=== PATIENT | female | born 1970 | race Caucasian/White ===

== ENCOUNTER 2020-10-22 04:46 | Inpatient (IN) | payer MEDICARE, MEDICAID ==
[~2020-10-22] VITALS: Ht 175.3 cm; Wt 77.2 kg
[2020-10-22 04:55] VITALS: BP 171/93
[2020-10-22] MEDS ORDERED: SERT100T PO (05:21)
[2020-10-22] MEDS ORDERED: AMLO-186 PO (05:21)
[2020-10-22] MEDS ORDERED: ALPR0.5T6 PO (05:21)
[2020-10-22] MEDS ORDERED: ZOLP10TA PO (05:21)
[2020-10-22] MEDS ORDERED: LAMO150T4 PO (05:21)
[2020-10-22] MEDS ORDERED: LOSA100T14 PO (05:21)
[2020-10-22] MEDS ORDERED: ACETAMINOPHEN 325 MG TABLET. PO PRN ×2 (05:45→12:30)
[2020-10-22] MEDS ORDERED: ONDANSETRON PF 4 MG/2 ML VIAL. IVP PRN (05:45)
[2020-10-22] MEDS: IV NORMAL SALINE 1000ML BAG 1,000 ML IV SCH ×2 (05:56→21:18)
[2020-10-22 06:00] VITALS: BP 170/89
--- NOTE | 2020-10-22 06:01 | NUR ---
The patient, HAN MYLES, 50 y/o, F admitted by PRADIP STEPHENS MD, was given written information regarding hospital policies, unit procedures and contact persons. Valuables were checked and all questions answered. Blood started at [facility] at 0327 done at 0535 with no reactions seen. VSS. Dr. Stephens notified of admit and orders given. Pt. resting comfortably in bed.
--- NOTE | 2020-10-22 06:35 | NUR ---
Unable to draw from port. Pt. states it is very positional and often has troubles drawing labs. Lab notified of need to draw.
[2020-10-22] MEDS: MORPHINE SULFATE 2 MG/ML VIAL. IV PRN ×2 (08:08→10:29)
[2020-10-22] MEDS ORDERED: PANTOPRAZOLE IV PUSH 40 MG VIAL. IVP SCH (09:00)
[2020-10-22] MEDS ORDERED: FLU VACC QS 2020-21(6MOS+)/PF 0.5 ML SYRINGE. VAX IM ONE (09:00)
[2020-10-22] MEDS ORDERED: IV RINGERS,LACTATED 1000ML 1,000 ML IV ONE (09:30)
--- NOTE | 2020-10-22 09:59 | PDOC2 ---
GI CONSULT Date of Service: DATE: 10/22/20 TIME: 09:59 Reason For Consult: GI bleed HPI: HPI: 50 y/o female sent from [facility]. Chronic n/v, abdominal pain, and alternating bowel habits. H/o J Carlos-en-Y at [facility] in 2003. Problems w/ "ulcers and strictures" since then. Indicates has seen many gastroenterologists and surgeons but the only name she can recall right now is Dr. White at who performed her last surgery in 2013 ("took out the part that was bleeding"). Thinks she last had EGD and colonoscopy at that time at and also had many scoped before that. Daily vomiting - often undigested food hours after eating. "It's like swallowing a bag of rocks" - "sits" in epigastric area. Sometimes has diarrhea, sometimes has constipation. This time, reports "dark" emesis and diarrhea "with red blood in it." Doesn't always have bleeding, but sometimes. Now sicker than usual, more pain than usual, says "I waited too long to come in." Stopped PPI years ago due to cost. Takes Mylanta instead, also Carafate. I asked who prescribed Carafate and she couldn't remember. Stopped iron and B12 too because she doesn't have health insurance. Has lost weight. No NSAIDs. S/p cholecystectomy. No liver or pancreas history. At [facility]: Hgb 6.8, MCV 83, plt 501, BUN 12, Cr 0.6, +Hemoccult. Says was transfused 1 unit pRBCs. Labs pending this morning. PMH: PMH: HTN appendectomy, cholecystectomy, J Carlos-en-Y and revision, , right hip replacement, bilateral shoulder surgeries (many) FH: Family History: No pertinent hx (denies GI cancers) Social History: Smoke: Quit ALCOHOL: none Drugs: None ROS: GEN: Denies fevers, chills, sweats HEENT: Denies blurred vision, sore throat CV: Denies chest pain RESP: Denies shortness of air, cough GI: Per HPI : Denies hematuria, dysuria ENDO: +weight loss NEURO: Denies confusion, dizziness MSK: Denies weakness, joint pain/swelling SKIN: Denies jaundice, pruritus Vitals: Vitals: Vital Signs Date Time Temp Pulse Resp B/P (MAP) Pulse Ox O2 Delivery O2 Flow Rate FiO2 10/22/20 08:08 19 93 Room Air 10/22/20 06:00 98.2 68 170/89 (116) 98.2 Allergies: Coded Allergies: ibuprofen (Verified Allergy, Severe, Swelling, 10/22/20) facial swelling lisinopril (Verified Allergy, Severe, Swelling, 10/22/20) facial swelling Medications: Current Medications Medications (Trade) Dose Ordered Sig/Jai Route PRN Reason Start Time Stop Time Status Last Admin Dose Admin Morphine Sulfate (Morphine Sulfate) 2 mg PRN Q2HR PRN IV PAIN 10/22/20 05:45 10/22/20 08:08 Ondansetron HCl (Zofran) 4 mg PRN Q6HRS PRN IVP NAUSEA/VOMITING 10/22/20 05:45 10/22/20 08:07 Pantoprazole Sodium (PROTONIX VIAL for IV PUSH) 40 mg BID IVP 10/22/20 09:00 10/22/20 08:07 Sodium Chloride 1,000 ml @ 100 mls/hr Q10H IV 10/22/20 05:45 10/22/20 05:56 Imaging: Imaging: none PE: GEN: uncomfortable HEENT: Atraumatic, PERRL LUNGS: CTAB HEART: RRR ABD: quiet, epigastric tenderness, soft EXTREMITY: No edema SKIN: No rashes, no jaundice NEURO/PSYCH: A & O 3, anxious A/P: A/P: N/v (?coffee-ground emesis), abd pain, diarrhea/hematochezia Anemia H/o J Carlos-en-Y and revision, h/o ulcers and strictures HTN - per primary Non-compliance -- Agree w/ IV PPI. Labs pending. Plan for EGD this morning pending COVID testing - d/w nurse Katy at 9:00 a.mKEZIA ELDER Oct 22, 2020 09:59
[2020-10-22] MEDS ORDERED: IV RINGERS,LACTATED 1000ML 1,000 ML IV SCH (10:30)
[2020-10-22] MEDS ORDERED: PROPOFOL 10 MG/ML (20ML) VIAL. IV ONE (10:43)
[2020-10-22] MEDS ORDERED: LIDOCAINE 2% PF 5 ML VIAL. ONE (10:44)
--- NOTE | 2020-10-22 11:04 | PDOC4 ---
PROCEDURE Procedure EGD Indication: anemia, hematemesis Meds: per anesthesia Findings: E--Normal. GEJ at 35 cm. G--S/p J Carlos-en-Y with small pouch unremarkable. Gastroenterostomy mildly narrowed; able to pass with 'scope and dilated some with passage. J Carlos limb--Chronic clean-based ulcer ~1 cm just distal to stoma w/o bleeding or signs of recent bleeding. Rest of limb unremarkable. Ryan. well. IMP: Anastomotic ulcer, chronic, but w/o signs of recent or risk of future b leeding. S/p J Carlos-en-Y bypass. Mild stomal stenosis, dilated with 'scope passage. REC: BID PPI po. QID sucralfate po. Try liquids--advance cautiously if tolerated. Long-term needs chronic iron supplementation, po or IV. ABRAHAM VELIZ MD Oct 22, 2020 11:04
--- NOTE | 2020-10-22 11:23 | PDOC1 ---
History and Physical Date of Service: DOS: DATE: 10/22/20 TIME: 11:03 Chief Complaint: Chief Complain: Hematemesis History of Present Illness: HPI: Patient is a 50-year-old female with past medical history of weight loss J Carlos-en-Y done in 2004 and multiple episodes of GI bleed since then. She has not last EGD was done in 2018 which was normal. She also had a surgical procedure in 2013 for a nonhealing ulcer in which the gastrojejunal anastomosis was revised she comes in due to daily vomiting of undigested food after eating. She has a has some dysphagia and some diarrhea. Patient also reports dark blood hematemesis and bright red blood with stools. Patient has not been taking PPI for years mainly due to cost. She does take Mylanta and Carafate. Patient also does stop taking iron and B12 because she does not have health insurance. Denies any recent weight loss or NSAID use. At [facility]: Hgb 6.8, MCV 83, plt 501, BUN 12, Cr 0.6, +Hemoccult. Says was transfused 1 unit pRBCs. Labs pending this morning. Past Medical/Surgical History: PMH/PSH: PMH:HTN PSURHx: appendectomy, cholecystectomy, J Carlos-en-Y and revision, , right hip replacement, bilateral shoulder surgeries (many) FH: Family History: No pertinent hx (denies GI cancers) Social History: Smoke: Quit ALCOHOL: none Drugs: None Allergies: Allergies: Coded Allergies: ibuprofen (Verified Allergy, Severe, Swelling, 10/22/20) facial swelling lisinopril (Verified Allergy, Severe, Swelling, 10/22/20) facial swelling Family History: Family History: No pertinent hx (denies GI cancers) Social History: Social History: Social History: Smoke: Quit ALCOHOL: none Drugs: None Current Medications: Current Medications Current Medications Morphine Sulfate (Morphine Sulfate) 2 mg PRN Q2HR PRN IV PAIN Last administered on 10/22/20at 10:29; Start 10/22/20 at 05:45 Ondansetron HCl (Zofran) 4 mg PRN Q6HRS PRN IVP NAUSEA/VOMITING Last admini stered on 10/22/20at 08:07; Start 10/22/20 at 05:45 Acetaminophen (Tylenol) 650 mg PRN Q6HRS PRN PO MILD PAIN / TEMP > 100.3'F; Start 10/22/20 at 05:45 Pantoprazole Sodium (PROTONIX VIAL for IV PUSH) 40 mg BID IVP Last administered on 10/22/20at 08:07; Start 10/22/20 at 09:00 Sodium Chloride 1,000 ml @ 100 mls/hr Q10H IV Last administered on 10/22/20at 05:56; Start 10/22/20 at 05:45 Influenza Virus Vaccine Quadrival (Fluzone Quad Syringe) 0.5 ml ONCE ONCE VAX IM ; Start 10/22/20 at 09:00; Stop 10/22/20 at 09:01; Status DC Ringer's Solution 1,000 ml @ 75 mls/hr 1X ONCE IV Last administered on 10/22/20at 10:24; Start 10/22/20 at 09:30; Stop 10/22/20 at 22:49 Ringer's Solution 1,000 ml @ 50 mls/hr Q20H IV ; Start 10/22/20 at 10:30; Stop 10/22/20 at 22:29 Propofol (Diprivan) 200 mg STK-MED ONCE IV ; Start 10/22/20 at 10:43; Stop 10/22/20 at 10:44; Status DC Lidocaine HCl (Lidocaine Pf 2% Vial) 5 ml STK-MED ONCE .ROUTE ; Start 10/22/20 at 10:44; Stop 10/22/20 at 10:44; Status DC Active Scripts Active Reported Amlodipine Besylate 5 Mg Tablet 5 Mg PO DAILYWSUP Ambien (Zolpidem Tartrate) 10 Mg Tablet 10 Mg PO HS PRN Alprazolam 0.5 Mg Tablet 1 Tab PO HS Lamotrigine 150 Mg Tablet 1 Tab PO DAILY Zoloft (Sertraline Hcl) 100 Mg Tablet 1 Tab PO DAILY Losartan Potassium 100 Mg Tablet 100 Mg PO DAILY ROS: Review of Systems Review of System REVIEW OF SYSTEMS: GENERAL: Denies weakness SKIN: No bruising, hair changes or rashes. EYES: No blurred, double or loss of vision. NOSE AND THROAT: No history of nosebleeds, hoarseness or sore throat. HEART: No history of palpitations, chest pain or shortness of breath on exertion. LUNGS: Denies cough, hemoptysis, wheezing or shortness of breath. GASTROINTESTINAL: Denies changes in appetite, nausea, vomiting, diarrhea or constipation. GENITOURINARY: No history of frequency, urgency, hesitancy or nocturia. NEUROLOGIC: Denies history of numbness, tingling, or tremor. PSYCHIATRIC: No history of panic, anxiety or depression. ENDOCRINE: No history of heat or cold intolerance, polyuria or polydipsia. EXTREMITIES: Denies joint pain, pain on walking or stiffness. Physical Exam: Vital Signs: Vital Signs Date Time Temp Pulse Resp B/P (MAP) Pulse Ox O2 Delivery O2 Flow Rate FiO2 10/22/20 10:58 98.8 72 18 126/58 99 Room Air 2 98.8 Physcial Exam: GEN: No apparent distress. Alert and oriented HEENT: Normal cephalic, atraumatic, external auditory canals are patent EYES: Extraocular muscles are intact, pupil are equally round and reactive to light and accommodation MUSCULOSKELETAL: Well developed , well nourished, good range of motion ENDOCRINE: No thyromegaly was palpated LYMPHATICS: No cervical chain or axillary nodes were noted HEMATOPOIETIC: No bruising NECK: Supple, no JVD, no thyromegaly was noted LUNGS: Clear to auscultation in all lung carbajal without rhonchi or wheezing HEART: RRR, S!, S2 present. Peripheral pulses intact, no obvious murmurs noted ABDOMEN: Soft, nontender. Positive bowel sounds, no organomegaly, normal bowel sounds EXTREMITIES: Without clubbing, cyanosis, or edema. Pedal pulses intact. Negative Homans sign NEUROLOGIC: Normal speech and tone. A&O x 3, moves all extremities, no obvious focal deficits PSYCHIATRIC: Normal affect, normal mood. Stable SKIN: No ulcerations or rashes, good skin turgor, no jaundice VASCULAR: Good capillary refill, neurovascular bundle appears to be intact Labs: Labs: Laboratory Tests Test 10/22/20 09:30 SARS-CoV-2 Antigen (Rapid) Negative (NEGATIVE) Laboratory Tests Test 10/22/20 09:30 SARS-CoV-2 Antigen (Rapid) Negative (NEGATIVE) Images: Images No pending images to review Assessment/Plan Assessment/Plan hematemesis due to acute GI bleed upper versus lower Profound anemia status post one PRBC transfusion History of recurrent gastric ulcers Medical nonadherence Admit to medicine for further management Gastroenterology consult for EGD upper versus lower PPI infusion N.p.o. status We will transfuse IV thiamine and B12 subcu injections Pending TSH, B12, iron, copper, thiamine levels Contraindicated due to GI bleed for DVT prophylaxis Protonix twice daily GI prophylaxis ADA diet Full code Discussed with RN and SW Disposition pending EGD Surrogate decision maker is the [] Justifications for Admission Other Justification PRADIP SHAW MD Oct 22, 2020 11:23
[2020-10-22 11:24] LABS: BASO % 0 % (0-3); EOS # 0.1 x10^3/uL (0.0-0.7); EOS % 1 % (0-3); HEMATOCRIT 27.1 % (36.0-47.0); HEMOGLOBIN 8.7 g/dL (12.0-15.5); LYMPH # 1.9 x10^3/uL (1.0-4.8); LYMPH % 18 % (24-48); MEAN CORPUSCULAR HEMOGLOBIN 27 pg (25-35); MEAN CORPUSCULAR HGB CONC 32 g/dL (31-37); MEAN CORPUSCULAR VOLUME 83 fL (79-100); MONO # 0.3 x10^3/uL (0.0-1.1); MONO % 3 % (0-9); NEUT % 78 % (31-73); PLATELET COUNT 449 x10^3/uL (140-400); RED BLOOD COUNT 3.28 x10^6/uL (3.50-5.40); RED CELL DISTRIBUTION WIDTH 15.9 % (11.5-14.5); WHITE BLOOD COUNT 10.3 x10^3/uL (4.0-11.0)
[2020-10-22 11:31] LABS: PROTHROMBIN TIME PATIENT 12.8 SEC (11.7-14.0)
[2020-10-22 11:42] LABS: TOTAL PROTEIN 5.9 g/dL (6.4-8.2)
[2020-10-22 11:43] LABS: ALK PHOS 190 U/L (46-116); ALT (SGPT) 38 U/L (14-59); ANION GAP 10 (6-14); AST (SGOT) 67 U/L (15-37); BLOOD UREA NITROGEN 7 mg/dL (7-20); BUN/CREATININE RATIO 35 (6-20); CALCIUM 8.1 mg/dL (8.5-10.1); CARBON DIOXIDE 24 mmol/L (21-32); CHLORIDE 106 mmol/L (98-107); CREATININE 0.2 mg/dL (0.6-1.0); GFR > 300.0; GLUCOSE 108 mg/dL (70-99); POTASSIUM 3.4 mmol/L (3.5-5.1); SODIUM 140 mmol/L (136-145); TOTAL BILIRUBIN 0.3 mg/dL (0.2-1.0)
[2020-10-22] MEDS ORDERED: SENNOSIDES 8.6 MG TABLET PO PRN (12:30)
[2020-10-22] MEDS ORDERED: DOCUSATE SODIUM 100 MG CAPSULE. PO PRN (12:30)
[2020-10-22] MEDS ORDERED: DEXTROSE 50% 25 GM / 50ML DISP.SYRIN. IV PRN (12:30)
[2020-10-22] MEDS ORDERED: CYANOCOBALAMIN (VITAMIN B-12) 1,000 MCG/ML VIAL. SQ ONE (13:00)
--- NOTE | 2020-10-22 13:48 | NUR ---
SW following for discharge planning. Spoke with RN and reviewed chart. Pt transferred from [place] per GI bleed. Pt from home. COVID negative, room air, clear liquid diet. PT/OT to evaluate. SW following.
[2020-10-22] MEDS: SUCRALFATE 1 GM TABLET. PO SCH ×3 (14:01→21:18)
[2020-10-22] MEDS: ONDANSETRON PF 4 MG/2 ML VIAL. IVP PRN (14:01)
[2020-10-22] MEDS: THIAMINE 100 MG TABLET. PO SCH (14:01)
[2020-10-22] MEDS: MORPHINE SULFATE 2 MG/ML VIAL. IVP PRN ×3 (14:02→23:53)
[2020-10-22 15:00] VITALS: BP 103/60
[2020-10-22] MEDS: PANTOPRAZOLE 40 MG TABLET.DR. PO SCH (16:30)
[2020-10-22 19:00] VITALS: BP 175/93
[2020-10-22 23:00] VITALS: BP 171/93
[2020-10-23] MEDS: IV NORMAL SALINE 1000ML BAG 1,000 ML IV SCH ×3 (01:45→21:03)
[2020-10-23] MEDS: MORPHINE SULFATE 2 MG/ML VIAL. IVP PRN ×6 (02:55→23:15)
[2020-10-23 03:00] VITALS: BP 129/90
[2020-10-23 07:00] VITALS: BP 154/86
[2020-10-23] MEDS: ONDANSETRON PF 4 MG/2 ML VIAL. IVP PRN ×2 (07:00→17:37)
[2020-10-23] MEDS: SUCRALFATE 1 GM TABLET. PO SCH ×4 (08:12→23:17)
[2020-10-23] MEDS: PANTOPRAZOLE 40 MG TABLET.DR. PO SCH ×2 (08:12→17:37)
[2020-10-23] MEDS: THIAMINE 100 MG TABLET. PO SCH (08:12)
[2020-10-23] MEDS ORDERED: THIAMINE INJ 100 MG in IV DEXTROSE 5% 50 ML IV SCH (09:00)
[2020-10-23] MEDS: CYANOCOBALAMIN (VITAMIN B-12) 1,000 MCG/ML VIAL. SQ SCH (09:20)
[2020-10-23] MEDS ORDERED: POLYETHYLENE GLYCOL 3350 17 GM PACKET. PO PRN (10:30)
--- NOTE | 2020-10-23 10:31 | PDOC ---
Date of Service: DATE: 10/23/20 TIME: 10:26 Subjective: Subjective: "I just don't feel right." No bleeding, no stools, no vomiting. Tolerating clears, not sure she wants more to eat but maybe. Nothing sounds good. Pain the same. Objective: Vital Signs: Vital Signs Date Time Temp Pulse Resp B/P (MAP) Pulse Ox O2 Delivery O2 Flow Rate FiO2 10/23/20 09:54 Room Air 10/23/20 07:00 98 10/23/20 07:00 98.5 72 16 154/86 (108) 98.5 10/22/20 10:58 2 Imaging: EGD 10/22 E--Normal. GEJ at 35 cm. G--S/p J Carlos-en-Y with small pouch unremarkable. Gastroenterostomy mildly narrowed; able to pass with 'scope and dilated some with passage. J Carlos limb--Chronic clean-based ulcer ~1 cm just distal to stoma w/o bleeding or signs of recent bleeding. Rest of limb unremarkable. IMP: Anastomotic ulcer, chronic, but w/o signs of recent or risk of future bleeding. S/p J Carlos-en-Y bypass. Mild stomal stenosis, dilated with 'scope passage. REC: BID PPI po. QID sucralfate po. Try liquids--advance cautiously if tolerated. Long-term needs chronic iron supplementation, po or IV. PE: GEN: NAD LUNGS: CTAB HEART: RRR ABD: epigastric discomfort - better NEURO/PSYCH: A & O 3, anxious A/P: S/p J Carlos-en-Y w/ chronic anastomotic ulcer and mild stomal stenosis Upper abd pain Anemia - improved after transfusions 10/22 -- Continue PPI and Carafate. Can try full liquids. Add iron, continue B12. Await interval labs. Justicifation of Admission Dx: Justifications for Admission: Justification of Admission Dx: Yes KEZIA HUTCHINSON Oct 23, 2020 10:31
[2020-10-23 10:47] LABS: BASO % 0 % (0-3); EOS # 0.1 x10^3/uL (0.0-0.7); EOS % 1 % (0-3); HEMATOCRIT 25.1 % (36.0-47.0); HEMOGLOBIN 7.9 g/dL (12.0-15.5); LYMPH # 1.1 x10^3/uL (1.0-4.8); LYMPH % 15 % (24-48); MEAN CORPUSCULAR HEMOGLOBIN 26 pg (25-35); MEAN CORPUSCULAR HGB CONC 32 g/dL (31-37); MEAN CORPUSCULAR VOLUME 82 fL (79-100); MONO # 0.4 x10^3/uL (0.0-1.1); MONO % 5 % (0-9); NEUT # 6.1 x10^3/uL (1.8-7.7); NEUT % 79 % (31-73); PLATELET COUNT 396 x10^3/uL (140-400); RED BLOOD COUNT 3.05 x10^6/uL (3.50-5.40); WHITE BLOOD COUNT 7.7 x10^3/uL (4.0-11.0)
[2020-10-23 11:00] VITALS: BP 175/80
[2020-10-23 11:09] LABS: CREATININE 0.3 mg/dL (0.6-1.0); GFR 233.6; MAGNESIUM 1.7 mg/dL (1.8-2.4); PHOSPHORUS 2.8 mg/dL (2.6-4.7); POTASSIUM 3.1 mmol/L (3.5-5.1)
--- NOTE | 2020-10-23 14:45 | PDOC ---
[employer] PROGRESS NOTE Date of Service DOS: DATE: 10/23/20 TIME: 14:42 Chief Complaint Chief Complaint hematemesis due to acute GI bleed upper versus lower Profound anemia status post one PRBC transfusion History of recurrent gastric ulcers Medical nonadherence Admit to medicine for further management Gastroenterology consult for EGD upper versus lower PPI infusion N.p.o. status We will transfuse IV thiamine and B12 subcut injections Pending TSH, B12, iron, copper, thiamine levels Contraindicated due to GI bleed for DVT prophylaxis Protonix twice daily GI prophylaxis ADA diet Full code Discussed with RN and SW Disposition pending EGD Surrogate decision maker is the [] History of Present Illness History of Present Illness 10/23/2020 No acute events overnight. Patient is not having any more hematemesis or hemoptysis. EGD completed which showed chronic healing ulcer near the anastomosis. No bloody stools. Pending diet full liquid today. Patient's chart, labs, images were reviewed and discussed with RN 50-year-old female with past medical history of weight loss J Carlos-en-Y done in 2004 and multiple episodes of GI bleed since then. She has not last EGD was done in 2018 which was normal. She also had a surgical procedure in 2013 for a nonhealing ulcer in which the gastrojejunal anastomosis was revised she comes in due to daily vomiting of undigested food after eating. She has a has some dysphagia and some diarrhea. Patient also reports dark blood hematemesis and bright red blood with stools. Patient has not been taking PPI for years mainly due to cost. She does take Mylanta and Carafate. Patient also does stop taking iron and B12 because she does not have health insurance. Denies any recent weight loss or NSAID use. At [facility]: Hgb 6.8, MCV 83, plt 501, BUN 12, Cr 0.6, +Hemoccult. Says was transfused 1 unit pRBCs. Labs pending this morning. Vitals/I&O Vitals/I&O: Vital Signs Date Time Temp Pulse Resp B/P (MAP) Pulse Ox O2 Delivery O2 Flow Rate FiO2 10/23/20 12:50 Room Air 10/23/20 11:00 98.5 62 16 175/80 (111) 98 98.5 10/22/20 10:58 2 I & O 10/22/20 10/22/2020 15:00 23:00 07:00 Intake Total 320 ml Balance 320 ml Labs Labs: Laboratory Tests Test 10/23/20 10:15 White Blood Count 7.7 x10^3/uL (4.0-11.0) Red Blood Count 3.05 x10^6/uL (3.50-5.40) Hemoglobin 7.9 g/dL (12.0-15.5) Hematocrit 25.1 % (36.0-47.0) Mean Corpuscular Volume 82 fL (79-100) Mean Corpuscular Hemoglobin 26 pg (25-35) Mean Corpuscular Hemoglobin Concent 32 g/dL (31-37) Red Cell Distribution Width 16.0 % (11.5-14.5) Platelet Count 396 x10^3/uL (140-400) Neutrophils (%) (Auto) 79 % (31-73) Lymphocytes (%) (Auto) 15 % (24-48) Monocytes (%) (Auto) 5 % (0-9) Eosinophils (%) (Auto) 1 % (0-3) Basophils (%) (Auto) 0 % (0-3) Neutrophils # (Auto) 6.1 x10^3/uL (1.8-7.7) Lymphocytes # (Auto) 1.1 x10^3/uL (1.0-4.8) Monocytes # (Auto) 0.4 x10^3/uL (0.0-1.1) Eosinophils # (Auto) 0.1 x10^3/uL (0.0-0.7) Basophils # (Auto) 0.0 x10^3/uL (0.0-0.2) Sodium Level 141 mmol/L (136-145) Potassium Level 3.1 mmol/L (3.5-5.1) Chloride Level 107 mmol/L (98-107) Carbon Dioxide Level 25 mmol/L (21-32) Anion Gap 9 (6-14) Blood Urea Nitrogen 4 mg/dL (7-20) Creatinine 0.3 mg/dL (0.6-1.0) Estimated GFR (Cockcroft-Gault) 233.6 Glucose Level 105 mg/dL (70-99) Calcium Level 8.0 mg/dL (8.5-10.1) Phosphorus Level 2.8 mg/dL (2.6-4.7) Magnesium Level 1.7 mg/dL (1.8-2.4) Comment Review of Relevant I have reviewed the following items ijeoma (where applicable) has been applied. Medications: Current Medications Medications (Trade) Dose Ordered Sig/Jai Route PRN Reason Start Time Stop Time Status Last Admin Dose Admin Pantoprazole Sodium (Protonix) 40 mg BIDAC PO 10/22/20 16:30 10/23/20 08:12 Cyanocobalamin (Vitamin B-12) 1,000 mcg DAILY SQ 10/23/20 09:00 10/23/20 09:20 Justifications for Admission Other Justification GI BLEED PRADIP SHAW MD Oct 23, 2020 14:45
[2020-10-23 15:00] VITALS: BP 160/92
--- NOTE | 2020-10-23 15:18 | NUR ---
SW following for discharge planning. Spoke with RN and reviewed chart. SW consulted to complete advanced directives. SW met with pt. Pt COVID negative, room air. PT recommendation is home with assistance. Pt stated she lives alone but can stay with her sister if needed. Pt declined the need for HH. Pt stated she is on disability and has trouble affording her medications sometimes. Pt asked about Medicaid. SW asked Iqra from [facility] to meet with pt. Working to advance diet. Discharge plan is home, self-care. Pt not ready for discharge. Advanced directives completed and notarized (copy on chart). Pt listed her sister Flor Castillo ([phone]) as her POA. No additional SW needs at this time. Addendum: 10/23/20 at 1535 by ELIZABETH LAND Iqra fernandez [facility] stated she met with pt and assisted pt in applying for Medicaid.
[2020-10-23 19:00] VITALS: BP 158/89
[2020-10-23] MEDS: ZOLPIDEM 5 MG TABLET. PO SCH (20:57)
[2020-10-23] MEDS: FERROUS SULFATE 325 MG TABLET. PO SCH (20:57)
[2020-10-23] MEDS ORDERED: POTASSIUM CHLORIDE 20 MEQ TABLET.ER. PO ONE (21:00)
[2020-10-23] MEDS ORDERED: MAGNESIUM SULFATE 2GM 50 ML IV ONE (21:00)
[2020-10-23] MEDS: ALPRAZolam 0.5 MG TABLET PO SCH (21:02)
[2020-10-23 23:00] VITALS: BP 159/86
[2020-10-23] MEDS: ZOLPIDEM 5 MG TABLET. PO PRN (23:43)
[2020-10-24] VITALS (7 sets, daily range): BP systolic 123–144; BP diastolic 70–86
[2020-10-24] MEDS: MORPHINE SULFATE 2 MG/ML VIAL. IVP PRN ×4 (03:50→13:11)
[2020-10-24] MEDS: IV NORMAL SALINE 1000ML BAG 1,000 ML IV SCH ×2 (07:17→16:53)
[2020-10-24] MEDS: lamoTRIgine 100 MG TABLET. PO SCH (09:10)
[2020-10-24] MEDS: SUCRALFATE 1 GM TABLET. PO SCH ×4 (09:10→20:29)
[2020-10-24] MEDS: FERROUS SULFATE 325 MG TABLET. PO SCH ×2 (09:11→20:29)
[2020-10-24] MEDS: CYANOCOBALAMIN (VITAMIN B-12) 1,000 MCG/ML VIAL. SQ SCH (09:11)
[2020-10-24] MEDS: LOSARTAN POTASSIUM 50 MG TABLET. PO SCH (09:11)
[2020-10-24] MEDS: PANTOPRAZOLE 40 MG TABLET.DR. PO SCH ×2 (09:11→16:52)
[2020-10-24] MEDS: SERTRALINE 50 MG TABLET. PO SCH (09:11)
[2020-10-24] MEDS: THIAMINE 100 MG TABLET. PO SCH (09:11)
[2020-10-24 10:14] LABS: BASO % 0 % (0-3); EOS # 0.1 x10^3/uL (0.0-0.7); EOS % 1 % (0-3); HEMATOCRIT 26.5 % (36.0-47.0); HEMOGLOBIN 8.4 g/dL (12.0-15.5); LYMPH # 1.1 x10^3/uL (1.0-4.8); LYMPH % 15 % (24-48); MEAN CORPUSCULAR HEMOGLOBIN 27 pg (25-35); MEAN CORPUSCULAR HGB CONC 32 g/dL (31-37); MEAN CORPUSCULAR VOLUME 83 fL (79-100); MONO # 0.5 x10^3/uL (0.0-1.1); MONO % 7 % (0-9); NEUT # 5.4 x10^3/uL (1.8-7.7); NEUT % 76 % (31-73); PLATELET COUNT 448 x10^3/uL (140-400); RED BLOOD COUNT 3.17 x10^6/uL (3.50-5.40); RED CELL DISTRIBUTION WIDTH 16.1 % (11.5-14.5)
[2020-10-24 10:33] LABS: CREATININE 0.4 mg/dL (0.6-1.0); GFR 167.6; MAGNESIUM 2.2 mg/dL (1.8-2.4); POTASSIUM 3.7 mmol/L (3.5-5.1)
--- NOTE | 2020-10-24 12:28 | PDOC ---
[employer] PROGRESS NOTE Date of Service DOS: DATE: 10/24/20 TIME: 12:27 Chief Complaint Chief Complaint hematemesis due to acute GI bleed upper versus lower Profound anemia status post one PRBC transfusion History of recurrent gastric ulcers Medical nonadherence Admit to medicine for further management Gastroenterology consult for EGD upper versus lower PPI infusion N.p.o. status We will transfuse IV thiamine and B12 subcut injections Pending TSH, B12, iron, copper, thiamine levels Contraindicated due to GI bleed for DVT prophylaxis Protonix twice daily GI prophylaxis ADA diet Full code Discussed with RN and SW Disposition pending EGD Surrogate decision maker is the [] History of Present Illness History of Present Illness 10/24/2020 No acute events overnight. Patient started on full liquid diet and was tolerating until last night when she had abdominal pain. Abdominal pain is sustained but has not worsened since eating. She is passing flatus and had a bowel movement this morning. That was nonbloody. Patient's chart, labs, images were reviewed and discussed with RN 10/23/2020 No acute events overnight. Patient is not having any more hematemesis or hemoptysis. EGD completed which showed chronic healing ulcer near the anastomosis. No bloody stools. Pending diet full liquid today. Patient's chart, labs, images were reviewed and discussed with RN 50-year-old female with past medical history of weight loss J Carlos-en-Y done in 2004 and multiple episodes of GI bleed since then. She has not last EGD was done in 2018 which was normal. She also had a surgical procedure in 2013 for a nonhealing ulcer in which the gastrojejunal anastomosis was revised she comes in due to daily vomiting of undigested food after eating. She has a has some dysphagia and some diarrhea. Patient also reports dark blood hematemesis and bright red blood with stools. Patient has not been taking PPI for years mainly due to cost. She does take Mylanta and Carafate. Patient also does stop taking iron and B12 because she does not have health insurance. Denies any recent weight loss or NSAID use. At [facility]: Hgb 6.8, MCV 83, plt 501, BUN 12, Cr 0.6, +Hemoccult. Says was transfused 1 unit pRBCs. Labs pending this morning. Vitals/I&O Vitals/I&O: Vital Signs Date Time Temp Pulse Resp B/P (MAP) Pulse Ox O2 Delivery O2 Flow Rate FiO2 10/24/20 11:00 97.8 74 17 135/82 (99) 99 Room Air 97.8 I & O 10/23/20 10/23/20 10/24/20 15:00 23:00 07:00 Intake Total 360 ml 220 ml Balance 360 ml 220 ml Labs Labs: Laboratory Tests Test 10/24/20 09:50 10/24/20 09:55 White Blood Count 7.0 x10^3/uL (4.0-11.0) Red Blood Count 3.17 x10^6/uL (3.50-5.40) Hemoglobin 8.4 g/dL (12.0-15.5) Hematocrit 26.5 % (36.0-47.0) Mean Corpuscular Volume 83 fL (79-100) Mean Corpuscular Hemoglobin 27 pg (25-35) Mean Corpuscular Hemoglobin Concent 32 g/dL (31-37) Red Cell Distribution Width 16.1 % (11.5-14.5) Platelet Count 448 x10^3/uL (140-400) Neutrophils (%) (Auto) 76 % (31-73) Lymphocytes (%) (Auto) 15 % (24-48) Monocytes (%) (Auto) 7 % (0-9) Eosinophils (%) (Auto) 1 % (0-3) Basophils (%) (Auto) 0 % (0-3) Neutrophils # (Auto) 5.4 x10^3/uL (1.8-7.7) Lymphocytes # (Auto) 1.1 x10^3/uL (1.0-4.8) Monocytes # (Auto) 0.5 x10^3/uL (0.0-1.1) Eosinophils # (Auto) 0.1 x10^3/uL (0.0-0.7) Basophils # (Auto) 0.0 x10^3/uL (0.0-0.2) Sodium Level 141 mmol/L (136-145) Potassium Level 3.7 mmol/L (3.5-5.1) Chloride Level 107 mmol/L (98-107) Carbon Dioxide Level 25 mmol/L (21-32) Anion Gap 9 (6-14) Blood Urea Nitrogen 3 mg/dL (7-20) Creatinine 0.4 mg/dL (0.6-1.0) Estimated GFR (Cockcroft-Gault) 167.6 Glucose Level 142 mg/dL (70-99) Calcium Level 8.0 mg/dL (8.5-10.1) Magnesium Level 2.2 mg/dL (1.8-2.4) Comment Review of Relevant I have reviewed the following items ijeoma (where applicable) has been applied. Medications: Current Medications Medications (Trade) Dose Ordered Sig/Jai Route PRN Reason Start Time Stop Time Status Last Admin Dose Admin Ferrous Sulfate (Feosol) 325 mg BID PO 10/23/20 21:00 10/24/20 09:11 Alprazolam (Xanax) 0.5 mg HS PO 10/23/20 21:00 10/23/20 21:02 Amlodipine Besylate (Norvasc) 5 mg DAILYWSUP PO 10/23/20 21:00 10/23/20 21:02 Lamotrigine (LaMICtal) 150 mg DAILY PO 10/24/20 09:00 10/24/20 09:10 Losartan Potassium (Cozaar) 100 mg DAILY PO 10/24/20 09:00 10/24/20 09:11 Sertraline HCl (Zoloft) 100 mg DAILY PO 10/24/20 09:00 10/24/20 09:11 Zolpidem Tartrate (Ambien) 5 mg QHS PO 10/23/20 21:00 10/23/20 20:57 Magnesium Sulfate 50 ml @ 25 mls/hr 1X ONCE IV 10/23/20 21:00 10/23/20 22:59 DC 10/23/20 21:00 Potassium Chloride (Klor-Con) 40 meq 1X ONCE PO 10/23/20 21:00 10/23/20 21:01 DC 10/23/20 20:58 Zolpidem Tartrate (Ambien) 5 mg PRN QHS PRN PO INSOMNIA 10/23/20 20:30 10/23/20 23:43 Justifications for Admission Other Justification GI BLEED PARDIP SHAW MD Oct 24, 2020 12:28
[2020-10-24] MEDS: ONDANSETRON PF 4 MG/2 ML VIAL. IVP PRN (13:14)
--- NOTE | 2020-10-24 13:16 | PDOC ---
GI PROGRESS NOTES Date of Service: Date/Time DATE: 10/24/20 TIME: 13:15 Subjective Subjective Continues to have some epigastric pain after eating full liquid diet. No vomiting but seems to have more discomfort than she did with clear liquids. She has a J Carlos-en-Y anastomotic ulcer as documented by Dr. Klein with some narrowing. Objective Vitals Vital Signs Date Time Temp Pulse Resp B/P (MAP) Pulse Ox O2 Delivery O2 Flow Rate FiO2 10/24/20 11:00 97.8 74 17 135/82 (99) 99 Room Air 97.8 10/24/20 09:50 17 Room Air 10/24/20 09:20 18 Room Air 10/24/20 09:11 79 133/85 10/24/20 07:00 97.7 79 17 133/85 (101) 99 Room Air 97.7 10/24/20 06:36 99.3 93 18 123/70 (87) 97 99.3 10/24/20 06:31 99 Room Air 10/24/20 06:01 98 Room Air 10/24/20 04:20 98 Room Air 10/24/20 03:50 98 Room Air 10/24/20 03:00 98.6 74 16 144/86 (105) 97 98.6 10/23/20 23:45 98 Room Air 10/23/20 23:15 98 Room Air 10/23/20 23:00 98.4 86 18 159/86 (110) 97 98.4 10/23/20 21:02 82 158/89 10/23/20 19:40 Room Air 10/23/20 19:00 99.1 82 20 158/89 (112) 98 99.1 10/23/20 18:09 Room Air 10/23/20 17:39 Room Air 10/23/20 15:00 99.0 88 18 160/92 (114) 100 Room Air 99.0 Labs Labs Laboratory Tests Test 10/24/20 09:50 10/24/20 09:55 White Blood Count 7.0 x10^3/uL (4.0-11.0) Red Blood Count 3.17 x10^6/uL (3.50-5.40) Hemoglobin 8.4 g/dL (12.0-15.5) Hematocrit 26.5 % (36.0-47.0) Mean Corpuscular Volume 83 fL (79-100) Mean Corpuscular Hemoglobin 27 pg (25-35) Mean Corpuscular Hemoglobin Concent 32 g/dL (31-37) Red Cell Distribution Width 16.1 % (11.5-14.5) Platelet Count 448 x10^3/uL (140-400) Neutrophils (%) (Auto) 76 % (31-73) Lymphocytes (%) (Auto) 15 % (24-48) Monocytes (%) (Auto) 7 % (0-9) Eosinophils (%) (Auto) 1 % (0-3) Basophils (%) (Auto) 0 % (0-3) Neutrophils # (Auto) 5.4 x10^3/uL (1.8-7.7) Lymphocytes # (Auto) 1.1 x10^3/uL (1.0-4.8) Monocytes # (Auto) 0.5 x10^3/uL (0.0-1.1) Eosinophils # (Auto) 0.1 x10^3/uL (0.0-0.7) Basophils # (Auto) 0.0 x10^3/uL (0.0-0.2) Sodium Level 141 mmol/L (136-145) Potassium Level 3.7 mmol/L (3.5-5.1) Chloride Level 107 mmol/L (98-107) Carbon Dioxide Level 25 mmol/L (21-32) Anion Gap 9 (6-14) Blood Urea Nitrogen 3 mg/dL (7-20) Creatinine 0.4 mg/dL (0.6-1.0) Estimated GFR (Cockcroft-Gault) 167.6 Glucose Level 142 mg/dL (70-99) Calcium Level 8.0 mg/dL (8.5-10.1) Magnesium Level 2.2 mg/dL (1.8-2.4) Physical Exam Physical Exam Chest clear Abdomen soft Assessment Assessment J Carlos-en-Y with anastomotic ulcer. This is a recurring problem for her apparently. The narrowing and ulceration are likely the source of her abdominal pain even with full liquid diet. She continues to be on Carafate appropriately and may eventually require dilation of the stricture once her ulcer is more stable. Plan Plan Because she had more pain with a full liquid diet today and that I recommend decreasing to a clear liquid diet and then slowly increase as tolerated while continuing sucralfate therapy and close monitoring Justicifation of Admission Dx: Justifications for Admission: Justification of Admission Dx: Yes EDMAR CAMACHO MD Oct 24, 2020 13:16
[2020-10-24] MEDS: HYDROmorphone 2 MG/ML VIAL IVP PRN ×3 (15:46→22:42)
[2020-10-24] MEDS: ALPRAZolam 0.5 MG TABLET PO SCH (20:29)
[2020-10-24] MEDS: ZOLPIDEM 5 MG TABLET. PO SCH (20:29)
[2020-10-24] MEDS: ZOLPIDEM 5 MG TABLET. PO PRN (20:29)
[2020-10-25] MEDS: ONDANSETRON PF 4 MG/2 ML VIAL. IVP PRN ×3 (02:58→14:54)
[2020-10-25] MEDS: HYDROmorphone 2 MG/ML VIAL IVP PRN ×9 (02:59→22:22)
[2020-10-25 03:00] VITALS: BP 144/80
[2020-10-25] MEDS: IV NORMAL SALINE 1000ML BAG 1,000 ML IV SCH ×2 (03:01→12:44)
[2020-10-25 07:00] VITALS: BP 129/62
[2020-10-25] MEDS: SUCRALFATE 1 GM TABLET. PO SCH ×4 (08:09→20:15)
[2020-10-25] MEDS: PANTOPRAZOLE 40 MG TABLET.DR. PO SCH ×2 (08:09→16:57)
[2020-10-25] MEDS: LOSARTAN POTASSIUM 50 MG TABLET. PO SCH (08:48)
[2020-10-25] MEDS: SERTRALINE 50 MG TABLET. PO SCH (08:48)
[2020-10-25] MEDS: THIAMINE 100 MG TABLET. PO SCH (08:48)
[2020-10-25] MEDS: lamoTRIgine 100 MG TABLET. PO SCH (08:49)
[2020-10-25] MEDS: FERROUS SULFATE 325 MG TABLET. PO SCH ×2 (08:49→20:15)
[2020-10-25] MEDS: CYANOCOBALAMIN (VITAMIN B-12) 1,000 MCG/ML VIAL. SQ SCH (08:55)
--- NOTE | 2020-10-25 09:39 | PDOC ---
G I PROGRESS NOTE Reason for Follow-up N/V/abd pain Subjective No new complaints Physical Exam Lungs clear CV S1 S2 ABD +BS, + epigastric tenderness Review of Relevant I have reviewed the following items ijeoma (where applicable) has been applied. Labs Laboratory Tests Test 10/23/20 10:15 10/24/20 09:50 10/24/20 09:55 White Blood Count 7.7 x10^3/uL (4.0-11.0) 7.0 x10^3/uL (4.0-11.0) Red Blood Count 3.05 x10^6/uL (3.50-5.40) 3.17 x10^6/uL (3.50-5.40) Hemoglobin 7.9 g/dL (12.0-15.5) 8.4 g/dL (12.0-15.5) Hematocrit 25.1 % (36.0-47.0) 26.5 % (36.0-47.0) Mean Corpuscular Volume 82 fL (79-100) 83 fL (79-100) Mean Corpuscular Hemoglobin 26 pg (25-35) 27 pg (25-35) Mean Corpuscular Hemoglobin Concent 32 g/dL (31-37) 32 g/dL (31-37) Red Cell Distribution Width 16.0 % (11.5-14.5) 16.1 % (11.5-14.5) Platelet Count 396 x10^3/uL (140-400) 448 x10^3/uL (140-400) Neutrophils (%) (Auto) 79 % (31-73) 76 % (31-73) Lymphocytes (%) (Auto) 15 % (24-48) 15 % (24-48) Monocytes (%) (Auto) 5 % (0-9) 7 % (0-9) Eosinophils (%) (Auto) 1 % (0-3) 1 % (0-3) Basophils (%) (Auto) 0 % (0-3) 0 % (0-3) Neutrophils # (Auto) 6.1 x10^3/uL (1.8-7.7) 5.4 x10^3/uL (1.8-7.7) Lymphocytes # (Auto) 1.1 x10^3/uL (1.0-4.8) 1.1 x10^3/uL (1.0-4.8) Monocytes # (Auto) 0.4 x10^3/uL (0.0-1.1) 0.5 x10^3/uL (0.0-1.1) Eosinophils # (Auto) 0.1 x10^3/uL (0.0-0.7) 0.1 x10^3/uL (0.0-0.7) Basophils # (Auto) 0.0 x10^3/uL (0.0-0.2) 0.0 x10^3/uL (0.0-0.2) Sodium Level 141 mmol/L (136-145) 141 mmol/L (136-145) Potassium Level 3.1 mmol/L (3.5-5.1) 3.7 mmol/L (3.5-5.1) Chloride Level 107 mmol/L (98-107) 107 mmol/L (98-107) Carbon Dioxide Level 25 mmol/L (21-32) 25 mmol/L (21-32) Anion Gap 9 (6-14) 9 (6-14) Blood Urea Nitrogen 4 mg/dL (7-20) 3 mg/dL (7-20) Creatinine 0.3 mg/dL (0.6-1.0) 0.4 mg/dL (0.6-1.0) Estimated GFR (Cockcroft-Gault) 233.6 167.6 Glucose Level 105 mg/dL (70-99) 142 mg/dL (70-99) Calcium Level 8.0 mg/dL (8.5-10.1) 8.0 mg/dL (8.5-10.1) Phosphorus Level 2.8 mg/dL (2.6-4.7) Magnesium Level 1.7 mg/dL (1.8-2.4) 2.2 mg/dL (1.8-2.4) Laboratory Tests Test 10/24/20 09:50 10/24/20 09:55 White Blood Count 7.0 x10^3/uL (4.0-11.0) Red Blood Count 3.17 x10^6/uL (3.50-5.40) Hemoglobin 8.4 g/dL (12.0-15.5) Hematocrit 26.5 % (36.0-47.0) Mean Corpuscular Volume 83 fL (79-100) Mean Corpuscular Hemoglobin 27 pg (25-35) Mean Corpuscular Hemoglobin Concent 32 g/dL (31-37) Red Cell Distribution Width 16.1 % (11.5-14.5) Platelet Count 448 x10^3/uL (140-400) Neutrophils (%) (Auto) 76 % (31-73) Lymphocytes (%) (Auto) 15 % (24-48) Monocytes (%) (Auto) 7 % (0-9) Eosinophils (%) (Auto) 1 % (0-3) Basophils (%) (Auto) 0 % (0-3) Neutrophils # (Auto) 5.4 x10^3/uL (1.8-7.7) Lymphocytes # (Auto) 1.1 x10^3/uL (1.0-4.8) Monocytes # (Auto) 0.5 x10^3/uL (0.0-1.1) Eosinophils # (Auto) 0.1 x10^3/uL (0.0-0.7) Basophils # (Auto) 0.0 x10^3/uL (0.0-0.2) Sodium Level 141 mmol/L (136-145) Potassium Level 3.7 mmol/L (3.5-5.1) Chloride Level 107 mmol/L (98-107) Carbon Dioxide Level 25 mmol/L (21-32) Anion Gap 9 (6-14) Blood Urea Nitrogen 3 mg/dL (7-20) Creatinine 0.4 mg/dL (0.6-1.0) Estimated GFR (Cockcroft-Gault) 167.6 Glucose Level 142 mg/dL (70-99) Calcium Level 8.0 mg/dL (8.5-10.1) Magnesium Level 2.2 mg/dL (1.8-2.4) Medications Current Medications Morphine Sulfate (Morphine Sulfate) 2 mg PRN Q2HR PRN IV PAIN Last administered on 10/22/20at 10:29; Start 10/22/20 at 05:45; Stop 10/22/20 at 13:45; Status DC Ondansetron HCl (Zofran) 4 mg PRN Q6HRS PRN IVP NAUSEA/VOMITING Last administered on 10/22/20at 08:07; Start 10/22/20 at 05:45; Stop 10/22/20 at 13:46; Status DC Acetaminophen (Tylenol) 650 mg PRN Q6HRS PRN PO MILD PAIN / TEMP > 100.3'F; Start 10/22/20 at 05:45; Stop 10/22/20 at 13:45; Status DC Pantoprazole Sodium (PROTONIX VIAL for IV PUSH) 40 mg BID IVP Last administered on 10/22/20at 08:07; Start 10/22/20 at 09:00; Stop 10/22/20 at 11:07; Status DC Sodium Chloride 1,000 ml @ 100 mls/hr Q10H IV Last administered on 10/25/20at 03:01; Start 10/22/20 at 05:45 Influenza Virus Vaccine Quadrival (Fluzone Quad Syringe) 0.5 ml ONCE ONCE VAX IM Last administered on 10/22/20at 21:25; Start 10/22/20 at 09:00; Stop 10/22/20 at 09:01; Status DC Ringer's Solution 1,000 ml @ 75 mls/hr 1X ONCE IV Last administered on 10/22/20at 10:24; Start 10/22/20 at 09:30; Stop 10/23/20 at 03:00; Status DC Ringer's Solution 1,000 ml @ 50 mls/hr Q20H IV ; Start 10/22/20 at 10:30; Stop 10/22/20 at 22:29; Status DC Propofol (Diprivan) 200 mg STK-MED ONCE IV ; Start 10/22/20 at 10:43; Stop 10/22/20 at 10:44; Status DC Lidocaine HCl (Lidocaine Pf 2% Vial) 5 ml STK-MED ONCE .ROUTE ; Start 10/22/20 at 10:44; Stop 10/22/20 at 10:44; Status DC Pantoprazole Sodium (Protonix) 40 mg BIDAC PO Last administered on 10/25/20 08:09; Start 10/22/20 at 16:30 Sucralfate (Carafate) 1 gm QIDACHS PO Last administered on 10/25/20 08:09; Start 10/22/20 at 11:30 Cyanocobalamin (Vitamin B-12) 1,000 mcg 1X ONCE SQ Last administered on 10/22/20at 14:01; Start 10/22/20 at 13:00; Stop 10/22/20 at 13:01; Status DC Sennosides (Senna) 17.2 mg PRN BID PRN PO CONSTIPATION; Start 10/22/20 at 12:30 Docusate Sodium (Colace) 100 mg PRN DAILY PRN PO HARD STOOLS; Start 10/22/20 at 12:30 Thiamine HCl 100 mg/Dextrose 51 ml @ 102 mls/hr DAILY IV ; Start 10/23/20 at 09:00; Status UNV Ondansetron HCl (Zofran) 4 mg PRN Q6HRS PRN IVP NAUSEA/VOMITING Last administered on 10/25/20 08:49; Start 10/22/20 at 12:30 Dextrose (Dextrose 50%-Water Syringe) 12.5 gm PRN Q15MIN PRN IV SEE COMMENTS; Start 10/22/20 at 12:30 Acetaminophen (Tylenol) 650 mg PRN Q4HRS PRN PO TEMP OVER 100.4F OR MILD PAIN; Start 10/22/20 at 12:30 Morphine Sulfate (Morphine Sulfate) 2 mg PRN Q2HR PRN IVP SEVERE PAIN 7-10 Last administered on 10/24/20 13:11; Start 10/22/20 at 12:45 Thiamine Mononitrate (Vitamin B-1) 100 mg DAILY PO Last administered on 10/25/20 08:48; Start 10/22/20 at 13:00 Cyanocobalamin (Vitamin B-12) 1,000 mcg DAILY SQ Last administered on 10/25/20 08:55; Start 10/23/20 at 09:00 Ferrous Sulfate (Feosol) 325 mg BID PO Last administered on 10/25/20 08:49; Start 10/23/20 at 21:00 Polyethylene Glycol (miraLAX PACKET) 17 gm PRN DAILY PRN PO CONSTIPATION; Start 10/23/20 at 10:30 Alprazolam (Xanax) 0.5 mg HS PO Last administered on 10/24/20 20:29; Start 10/23/20 at 21:00 Amlodipine Besylate (Norvasc) 5 mg DAILYWSUP PO Last administered on 10/24/20 16:53; Start 10/23/20 at 21:00 Lamotrigine (LaMICtal) 150 mg DAILY PO Last administered on 10/25/20 08:49; Start 10/24/20 at 09:00 Losartan Potassium (Cozaar) 100 mg DAILY PO Last administered on 10/25/20 08:48; Start 10/24/20 at 09:00 Sertraline HCl (Zoloft) 100 mg DAILY PO Last administered on 10/25/20at 08:48; Start 10/24/20 at 09:00 Zolpidem Tartrate (Ambien) 5 mg QHS PO Last administered on 10/24/20 20:29; Start 10/23/20 at 21:00 Magnesium Sulfate 50 ml @ 25 mls/hr 1X ONCE IV Last administered on 10/23/20at 21:00; Start 10/23/20 at 21:00; Stop 10/23/20 at 22:59; Status DC Potassium Chloride (Klor-Con) 40 meq 1X ONCE PO Last administered on 10/23/20at 20:58; Start 10/23/20 at 21:00; Stop 10/23/20 at 21:01; Status DC Zolpidem Tartrate (Ambien) 5 mg PRN QHS PRN PO INSOMNIA Last administered on 10/24/20 20:29; Start 10/23/20 at 20:30 Hydromorphone HCl (Dilaudid) 0.4 mg PRN Q2HR PRN IVP PAIN Last administered on 10/25/20 08:13; Start 10/24/20 at 12:30 Active Scripts Active Reported Amlodipine Besylate 5 Mg Tablet 5 Mg PO DAILYWSUP Ambien (Zolpidem Tartrate) 10 Mg Tablet 10 Mg PO HS PRN Alprazolam 0.5 Mg Tablet 1 Tab PO HS Lamotrigine 150 Mg Tablet 1 Tab PO DAILY Zoloft (Sertraline Hcl) 100 Mg Tablet 1 Tab PO DAILY Losartan Potassium 100 Mg Tablet 100 Mg PO DAILY Vitals/I & O Vital Sign - Last 24 Hours 10/24/20 10/24/20 10/24/20 10/24/20 09:50 11:00 13:11 13:41 Temp 97.8 97.8 Pulse 74 Resp 17 17 17 18 B/P (MAP) 135/82 (99) Pulse Ox 99 99 O2 Delivery Room Air Room Air Room Air Room Air O2 Flow Rate 2.0 10/24/20 10/24/20 10/24/20 10/24/20 14:49 15:46 16:16 16:53 Temp 97.8 97.8 Pulse 70 70 Resp 17 18 18 B/P (MAP) 139/70 (93) 139/70 Pulse Ox 99 O2 Delivery Room Air Room Air Room Air 10/24/20 10/24/20 10/24/20 10/24/20 19:00 19:06 19:20 19:30 Temp 98.3 98.3 Pulse 88 Resp 16 16 16 B/P (MAP) 140/84 (102) Pulse Ox 96 O2 Delivery Room Air Room Air Room Air Room Air 10/24/20 10/24/20 10/24/20 10/25/20 22:42 23:00 23:10 02:59 Temp 97.5 97.5 Pulse 86 Resp 17 16 17 16 B/P (MAP) 133/83 (100) Pulse Ox 96 O2 Delivery Room Air Room Air Room Air Room Air 10/25/20 10/25/20 10/25/20 10/25/20 03:00 03:25 06:03 06:23 Temp 97.9 97.9 Pulse 69 Resp 16 15 16 16 B/P (MAP) 144/80 (101) Pulse Ox 95 O2 Delivery Room Air Room Air Room Air Room Air 10/25/20 10/25/20 10/25/20 10/25/20 07:00 08:13 08:47 08:48 Temp 97.9 97.9 Pulse 76 76 Resp 20 B/P (MAP) 129/62 (84) 129/62 Pulse Ox 98 O2 Delivery Room Air Room Air Room Air Intake and Output 0 10/24/20 10/24/20 10/25/20 15:00 23:00 07:00 Intake Total 300 ml 400 ml 1380 ml Balance 300 ml 400 ml 1380 ml Problem List N/V- with anastomotic ucler s/p gastric bypass with revision Medical therapy for now Justicifation of Admission Dx: Justifications for Admission: Justification of Admission Dx: Yes RODRÍGUEZ NORMAN MD Oct 25, 2020 09:39
--- NOTE | 2020-10-25 10:48 | PDOC ---
[employer] PROGRESS NOTE Date of Service DOS: DATE: 10/25/20 TIME: 10:46 Chief Complaint Chief Complaint hematemesis due to acute GI bleed upper with EGD showing Gastroenterostomy mildly narrowed and the J Carlos limb--Chronic clean-based ulcer ~1 cm just distal to stoma w/o bleeding or signs of recent bleeding. Rest of limb unremarkable. Profound anemia status post one PRBC transfusion History of recurrent gastric ulcers Medical nonadherence Admit to medicine for further management Gastroenterology consult for EGD upper versus lower PPI infusion N.p.o. status We will transfuse IV thiamine and B12 subcut injections Pending TSH, B12, iron, copper, thiamine levels Contraindicated due to GI bleed for DVT prophylaxis Protonix twice daily GI prophylaxis ADA diet Full code Discussed with RN and SW Disposition pending EGD Surrogate decision maker is the [] History of Present Illness History of Present Illness 10/25/2020 No acute events overnight. Patient is tolerating clear liquid diet will attempt to advance as tolerated to full liquid diet. Adjusted pain medication regimen to add [place] 5/325 mg every 4 hours. Patient still having abdominal pain with meals. Passing flatus. Patient's chart, labs, images were reviewed and discussed with RN 10/24/2020 No acute events overnight. Patient started on full liquid diet and was tolerating until last night when she had abdominal pain. Abdominal pain is sustained but has not worsened since eating. She is passing flatus and had a bowel movement this morning. That was nonbloody. Patient's chart, labs, images were reviewed and discussed with RN 10/23/2020 No acute events overnight. Patient is not having any more hematemesis or hemoptysis. EGD completed which showed chronic healing ulcer near the anastomosis. No bloody stools. Pending diet full liquid today. Patient's chart, labs, images were reviewed and discussed with RN 50-year-old female with past medical history of weight loss J Carlos-en-Y done in 2004 and multiple episodes of GI bleed since then. She has not last EGD was done in 2018 which was normal. She also had a surgical procedure in 2013 for a nonhealing ulcer in which the gastrojejunal anastomosis was revised she comes in due to daily vomiting of undigested food after eating. She has a has some dysphagia and some diarrhea. Patient also reports dark blood hematemesis and bright red blood with stools. Patient has not been taking PPI for years mainly due to cost. She does take Mylanta and Carafate. Patient also does stop taking iron and B12 because she does not have health insurance. Denies any recent weight loss or NSAID use. At [facility]: Hgb 6.8, MCV 83, plt 501, BUN 12, Cr 0.6, +Hemoccult. Says was transfused 1 unit pRBCs. Labs pending this morning. Vitals/I&O Vitals/I&O: Vital Signs Date Time Temp Pulse Resp B/P (MAP) Pulse Ox O2 Delivery O2 Flow Rate FiO2 10/25/20 10:15 Room Air 10/25/20 08:48 76 129/62 10/25/20 07:00 97.9 20 98 97.9 10/24/20 13:41 2.0 I & O 10/24/20 10/24/20 10/25/20 15:00 23:00 07:00 Intake Total 300 ml 400 ml 1380 ml Balance 300 ml 400 ml 1380 ml Comment Review of Relevant I have reviewed the following items ijeoma (where applicable) has been applied. Medications: Current Medications Medications (Trade) Dose Ordered Sig/Jai Route PRN Reason Start Time Stop Time Status Last Admin Dose Admin Hydromorphone HCl (Dilaudid) 0.4 mg PRN Q2HR PRN IVP PAIN 10/24/20 12:30 10/25/20 10:15 Justifications for Admission Other Justification GI BLEED PRADIP SHAW MD Oct 25, 2020 10:48
[2020-10-25 11:00] VITALS: BP 139/82
[2020-10-25] MEDS: HYDROcodone/APAP 5/325MG 1 TAB TABLET PO PRN ×3 (11:06→23:04)
[2020-10-25 15:00] VITALS: BP 162/91
[2020-10-25 19:00] VITALS: BP 156/96
[2020-10-25] MEDS: ZOLPIDEM 5 MG TABLET. PO SCH ×2 (20:15→23:04)
[2020-10-25] MEDS: ALPRAZolam 0.5 MG TABLET PO SCH (20:15)
[2020-10-25 23:00] VITALS: BP 137/84
[2020-10-26] MEDS: IV NORMAL SALINE 1000ML BAG 1,000 ML IV SCH ×3 (00:29→21:11)
[2020-10-26] MEDS: HYDROmorphone 2 MG/ML VIAL IVP PRN ×9 (00:30→21:07)
[2020-10-26] MEDS: ONDANSETRON PF 4 MG/2 ML VIAL. IVP PRN ×2 (02:47→08:07)
[2020-10-26 03:01] VITALS: BP 140/84
[2020-10-26] MEDS: HYDROcodone/APAP 5/325MG 1 TAB TABLET PO PRN ×4 (03:30→21:09)
[2020-10-26 07:30] VITALS: BP 135/79
[2020-10-26] MEDS: CYANOCOBALAMIN (VITAMIN B-12) 1,000 MCG/ML VIAL. SQ SCH (08:07)
[2020-10-26] MEDS: THIAMINE 100 MG TABLET. PO SCH (08:07)
[2020-10-26] MEDS: SERTRALINE 50 MG TABLET. PO SCH (08:08)
[2020-10-26] MEDS: LOSARTAN POTASSIUM 50 MG TABLET. PO SCH (08:08)
[2020-10-26] MEDS: lamoTRIgine 100 MG TABLET. PO SCH (08:08)
[2020-10-26] MEDS: PANTOPRAZOLE 40 MG TABLET.DR. PO SCH ×2 (08:09→16:25)
[2020-10-26] MEDS: FERROUS SULFATE 325 MG TABLET. PO SCH ×2 (08:09→21:09)
[2020-10-26] MEDS: SUCRALFATE 1 GM TABLET. PO SCH ×4 (08:09→21:09)
[2020-10-26 11:00] VITALS: BP 145/81
--- NOTE | 2020-10-26 11:34 | PDOC ---
[employer] PROGRESS NOTE Date of Service DOS: DATE: 10/26/20 TIME: 11:29 Chief Complaint Chief Complaint GI bleed Hematemesis Gastric ulcer Anemia Medication nonadherance Hyperglycemia Low Cr Low BUN Thrombocytosis History of Present Illness History of Present Illness 10/26/2020 Patient seen and examined in room today Patient states her nausea is going down but still complains of discomfort after she eats. Nurse assisting her to take her pain medications Complains of headache, diarrhea, weakness and feeling winded Discussed with RN = Patient still in a lot of pain but RN says she doesn't seem in distress and is on multiple analgesics Charts reviewed 10/25/2020 No acute events overnight. Patient is tolerating clear liquid diet will attempt to advance as tolerated to full liquid diet. Adjusted pain medication regimen to add [place] 5/325 mg every 4 hours. Patient still having abdominal pain with meals. Passing flatus. Patient's chart, labs, images were reviewed and discussed with RN 10/24/2020 No acute events overnight. Patient started on full liquid diet and was tolerating until last night when she had abdominal pain. Abdominal pain is sustained but has not worsened since eating. She is passing flatus and had a bowel movement this morning. That was nonbloody. Patient's chart, labs, images were reviewed and discussed with RN 10/23/2020 No acute events overnight. Patient is not having any more hematemesis or hemoptysis. EGD completed which showed chronic healing ulcer near the anastomosis. No bloody stools. Pending diet full liquid today. Patient's chart, labs, images were reviewed and discussed with RN 50-year-old female with past medical history of weight loss J Carlos-en-Y done in 2004 and multiple episodes of GI bleed since then. She has not last EGD was done in 2018 which was normal. She also had a surgical procedure in 2013 for a nonhealing ulcer in which the gastrojejunal anastomosis was revised she comes in due to daily vomiting of undigested food after eating. She has a has some dysphagia and some diarrhea. Patient also reports dark blood hematemesis and bright red blood with stools. Patient has not been taking PPI for years mainly due to cost. She does take Mylanta and Carafate. Patient also does stop taking iron and B12 because she does not have health insurance. Denies any recent weight loss or NSAID use. At [facility]: Hgb 6.8, MCV 83, plt 501, BUN 12, Cr 0.6, +Hemoccult. Says was transfused 1 unit pRBCs. Labs pending this morning. Vitals/I&O Vitals/I&O: Vital Signs Date Time Temp Pulse Resp B/P (MAP) Pulse Ox O2 Delivery O2 Flow Rate FiO2 10/26/20 11:10 Room Air 10/26/20 08:08 89 135/79 10/26/20 07:30 97.7 18 95 97.7 10/26/20 05:11 2.0 I & O 10/25/20 10/25/20 10/26/20 15:00 23:00 07:00 Intake Total 240 ml 480 ml Balance 240 ml 480 ml Physical Exam General: Alert, Oriented X3, Cooperative Heart: Regular rate, No murmurs Lungs: Clear Abdomen: Soft, Other Extremities: No clubbing, Normal pulses Skin: No rashes, No significant lesion Review of Systems Review of Systems: Endorses headache, diarrhea, SOB, weakness Denies chest pain Assessment and Plan Assessmemt and Plan ASSESSMENT GI bleed Hematemesis Gastric ulcer Anemia Medication nonadherance Hyperglycemia Low Cr Low BUN Thrombocytosis PLAN Continue monitoring Plan for a bland food diet after her CLD Continue home meds Trend labs Full code Comment Review of Relevant I have reviewed the following items ijeoma (where applicable) has been applied. Justifications for Admission Other Justification GI BLEED GENOVEVA REYES III DO Oct 26, 2020 11:34
[2020-10-26 15:00] VITALS: BP 141/79
[2020-10-26 19:00] VITALS: BP 152/86
[2020-10-26] MEDS: ZOLPIDEM 5 MG TABLET. PO SCH (21:09)
[2020-10-26] MEDS: ALPRAZolam 0.5 MG TABLET PO SCH (21:09)
[2020-10-26 23:06] VITALS: BP 154/84
[2020-10-27] MEDS: HYDROmorphone 2 MG/ML VIAL IVP PRN ×7 (00:04→22:00)
[2020-10-27 03:08] VITALS: BP 151/82
[2020-10-27] MEDS: HYDROcodone/APAP 5/325MG 1 TAB TABLET PO PRN ×4 (03:09→20:41)
[2020-10-27] MEDS: IV NORMAL SALINE 1000ML BAG 1,000 ML IV SCH ×2 (06:38→16:15)
[2020-10-27 09:00] VITALS: BP 129/85
[2020-10-27] MEDS: SERTRALINE 50 MG TABLET. PO SCH (09:37)
[2020-10-27] MEDS: lamoTRIgine 100 MG TABLET. PO SCH (09:37)
[2020-10-27] MEDS: PANTOPRAZOLE 40 MG TABLET.DR. PO SCH ×2 (09:37→16:15)
[2020-10-27] MEDS: FERROUS SULFATE 325 MG TABLET. PO SCH ×2 (09:37→20:42)
[2020-10-27] MEDS: SUCRALFATE 1 GM TABLET. PO SCH ×4 (09:38→20:42)
[2020-10-27] MEDS: THIAMINE 100 MG TABLET. PO SCH (09:38)
[2020-10-27] MEDS: LOSARTAN POTASSIUM 50 MG TABLET. PO SCH (09:38)
[2020-10-27] MEDS: CYANOCOBALAMIN (VITAMIN B-12) 1,000 MCG/ML VIAL. SQ SCH (09:38)
[2020-10-27 11:00] VITALS: BP 148/83
--- NOTE | 2020-10-27 11:06 | PDOC ---
Date of Service: DATE: 10/27/20 TIME: 11:02 Subjective: Subjective: Sometimes feels okay, sometimes not. Sometimes able to eat okay, sometimes not. Sometimes has epigastric pain, sometimes not. No recurrent vomiting or bleeding. "A little" diarrhea that is "green like iron." Wants to try advancing diet beyond full liquids. Objective: Objective: Nurse asks about discharge but hasn't d/w primary yet. I reviewed meds - seems still getting IV Dilaudid along w/ PO Lortab. 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 Try GI soft for lunch - make sure tolerates before considering DC - also might want to consider stopping IV pain meds as a trial but will defer to primary. Continue PPI, Carafate, iron, B12. Justicifation of Admission Dx: Justifications for Admission: Justification of Admission Dx: Yes KEZIA HUTCHINSON Oct 27, 2020 11:06
[2020-10-27] MEDS: ONDANSETRON PF 4 MG/2 ML VIAL. IVP PRN (11:57)
--- NOTE | 2020-10-27 11:58 | NUR ---
Pt identified as BPCI. sales planner to follow. No further needs from this SW.
[2020-10-27 15:00] VITALS: BP 138/80
[2020-10-27 19:00] VITALS: BP 142/77
[2020-10-27] MEDS: ZOLPIDEM 5 MG TABLET. PO SCH (20:41)
[2020-10-27] MEDS: ALPRAZolam 0.5 MG TABLET PO SCH (20:42)
[2020-10-27] MEDS: ZOLPIDEM 5 MG TABLET. PO PRN (20:42)
--- NOTE | 2020-10-27 21:59 | PDOC ---
PROGRESS NOTES Date of Service: DATE: 10/27/20 TIME: 22:57 Chief Complaint Chief Complaint GI bleed Hematemesis Gastric ulcer Anemia Medication nonadherance Hyperglycemia Low Cr Low BUN Thrombocytosis Oral intake intolerance with intractable nausea Plan: follow gi recs will space her meals out hope to discharge in the am if symptoms are better History of Present Illness History of Present Illness 10/27/2020 Patient still not able to eat due to nausea and emesis, no hematemesis reported hemodynamically stable all concerns addressed, discussed with RN 10/26/2020 Patient seen and examined in room today Patient states her nausea is going down but still complains of discomfort after she eats. Nurse assisting her to take her pain medications Complains of headache, diarrhea, weakness and feeling winded Discussed with RN = Patient still in a lot of pain but RN says she doesn't seem in distress and is on multiple analgesics Charts reviewed 10/25/2020 No acute events overnight. Patient is tolerating clear liquid diet will attempt to advance as tolerated to full liquid diet. Adjusted pain medication regimen to add Navarro 5/325 mg every 4 hours. Patient still having abdominal pain with meals. Passing flatus. Patient's chart, labs, images were reviewed and discussed with RN 10/24/2020 No acute events overnight. Patient started on full liquid diet and was tolerating until last night when she had abdominal pain. Abdominal pain is sustained but has not worsened since eating. She is passing flatus and had a bowel movement this morning. That was nonbloody. Patient's chart, labs, images were reviewed and discussed with RN 10/23/2020 No acute events overnight. Patient is not having any more hematemesis or hemoptysis. EGD completed which showed chronic healing ulcer near the anastomosis. No bloody stools. Pending diet full liquid today. Patient's chart, labs, images were reviewed and discussed with RN 50-year-old female with past medical history of weight loss J Carlos-en-Y done in 2004 and multiple episodes of GI bleed since then. She has not last EGD was done in 2018 which was normal. She also had a surgical procedure in 2013 for a nonhealing ulcer in which the gastrojejunal anastomosis was revised she comes in due to daily vomiting of undigested food after eating. She has a has some dys phagia and some diarrhea. Patient also reports dark blood hematemesis and bright red blood with stools. Patient has not been taking PPI for years mainly due to cost. She does take Mylanta and Carafate. Patient also does stop taking iron and B12 because she does not have health insurance. Denies any recent weight loss or NSAID use. At [facility]: Hgb 6.8, MCV 83, plt 501, BUN 12, Cr 0.6, +Hemoccult. Says was transfused 1 unit pRBCs. Labs pending this morning. Vitals Vitals Vital Signs Date Time Temp Pulse Resp B/P (MAP) Pulse Ox O2 Delivery O2 Flow Rate FiO2 10/27/20 20:41 17 Room Air 10/27/20 19:00 98.9 70 142/77 (98) 98 98.9 Physical Exam General: Alert, Oriented X3, Cooperative Heart: Regular rate, No murmurs Lungs: Clear Abdomen: Soft, Other Extremities: No clubbing, Normal pulses Skin: No rashes, No significant lesion Comment Review of Relevant I have reviewed the following items ijeoma (where applicable) has been applied. Medications Current Medications Morphine Sulfate (Morphine Sulfate) 2 mg PRN Q2HR PRN IV PAIN Last administered on 10/22/20at 10:29; Start 10/22/20 at 05:45; Stop 10/22/20 at 13:45; Status DC Ondansetron HCl (Zofran) 4 mg PRN Q6HRS PRN IVP NAUSEA/VOMITING Last administered on 10/22/20at 08:07; Start 10/22/20 at 05:45; Stop 10/22/20 at 13:46; Status DC Acetaminophen (Tylenol) 650 mg PRN Q6HRS PRN PO MILD PAIN / TEMP > 100.3'F; Start 10/22/20 at 05:45; Stop 10/22/20 at 13:45; Status DC Pantoprazole Sodium (PROTONIX VIAL for IV PUSH) 40 mg BID IVP Last administered on 10/22/20at 08:07; Start 10/22/20 at 09:00; Stop 10/22/20 at 11:07; Status DC Sodium Chloride 1,000 ml @ 100 mls/hr Q10H IV Last administered on 10/27/20at 16:15; Start 10/22/20 at 05:45 Influenza Virus Vaccine Quadrival (Fluzone Quad Syringe) 0.5 ml ONCE ONCE VAX IM Last administered on 10/22/20at 21:25; Start 10/22/20 at 09:00; Stop 10/22/20 at 09:01; Status DC Ringer's Solution 1,000 ml @ 75 mls/hr 1X ONCE IV Last administered on 10/22/20at 10:24; Start 10/22/20 at 09:30; Stop 10/23/20 at 03:00; Status DC Ringer's Solution 1,000 ml @ 50 mls/hr Q20H IV ; Start 10/22/20 at 10:30; Stop 10/22/20 at 22:29; Status DC Propofol (Diprivan) 200 mg STK-MED ONCE IV ; Start 10/22/20 at 10:43; Stop 10/22/20 at 10:44; Status DC Lidocaine HCl (Lidocaine Pf 2% Vial) 5 ml STK-MED ONCE .ROUTE ; Start 10/22/20 at 10:44; Stop 10/22/20 at 10:44; Status DC Pantoprazole Sodium (Protonix) 40 mg BIDAC PO Last administered on 10/27/20at 16:15; Start 10/22/20 at 16:30 Sucralfate (Carafate) 1 gm QIDACHS PO Last administered on 10/27/20at 20:42; Start 10/22/20 at 11:30 Cyanocobalamin (Vitamin B-12) 1,000 mcg 1X ONCE SQ Last administered on 10/22/20at 14:01; Start 10/22/20 at 13:00; Stop 10/22/20 at 13:01; Status DC Sennosides (Senna) 17.2 mg PRN BID PRN PO CONSTIPATION, 2ND CHOICE; Start 10/22/20 at 12:30 Docusate Sodium (Colace) 100 mg PRN DAILY PRN PO HARD STOOLS; Start 10/22/20 at 12:30 Thiamine HCl 100 mg/Dextrose 51 ml @ 102 mls/hr DAILY IV ; Start 10/23/20 at 09:00; Status UNV Ondansetron HCl (Zofran) 4 mg PRN Q6HRS PRN IVP NAUSEA/VOMITING Last administered on 10/27/20at 11:57; Start 12/30/20 at 12:30 Dextrose (Dextrose 50%-Water Syringe) 12.5 gm PRN Q15MIN PRN IV SEE COMMENTS; Start 10/22/20 at 12:30 Acetaminophen (Tylenol) 650 mg PRN Q4HRS PRN PO TEMP OVER 100.4F OR MILD PAIN; Start 10/22/20 at 12:30 Morphine Sulfate (Morphine Sulfate) 2 mg PRN Q2HR PRN IVP SEVERE PAIN 7-10 Last administered on 10/24/20 13:11; Start 10/22/20 at 12:45; Stop 10/25/20 at 10:31; Status DC Thiamine Mononitrate (Vitamin B-1) 100 mg DAILY PO Last administered on 10/27/20 09:38; Start 10/22/20 at 13:00 Cyanocobalamin (Vitamin B-12) 1,000 mcg DAILY SQ Last administered on 10/27/20 09:38; Start 10/23/20 at 09:00 Ferrous Sulfate (Feosol) 325 mg BID PO Last administered on 10/27/20 20:42; Start 10/23/20 at 21:00 Polyethylene Glycol (miraLAX PACKET) 17 gm PRN DAILY PRN PO CONSTIPATION, 1ST CHOICE; Start 10/23/20 at 10:30 Alprazolam (Xanax) 0.5 mg HS PO Last administered on 10/27/20 20:42; Start 10/23/20 at 21:00 Amlodipine Besylate (Norvasc) 5 mg DAILYWSUP PO Last administered on 10/27/20 16:15; Start 10/23/20 at 21:00 Lamotrigine (LaMICtal) 150 mg DAILY PO Last administered on 10/27/20 09:37; Start 10/24/20 at 09:00 Losartan Potassium (Cozaar) 100 mg DAILY PO Last administered on 10/27/20 09:38; Start 10/24/20 at 09:00 Sertraline HCl (Zoloft) 100 mg DAILY PO Last administered on 10/27/20 09:37; Start 10/24/20 at 09:00 Zolpidem Tartrate (Ambien) 5 mg QHS PO Last administered on 10/27/20 20:41; Start 10/23/20 at 21:00 Magnesium Sulfate 50 ml @ 25 mls/hr 1X ONCE IV Last administered on 10/23/20at 21:00; Start 10/23/20 at 21:00; Stop 10/23/20 at 22:59; Status DC Potassium Chloride (Klor-Con) 40 meq 1X ONCE PO Last administered on 10/23/20at 20:58; Start 10/23/20 at 21:00; Stop 10/23/20 at 21:01; Status DC Zolpidem Tartrate (Ambien) 5 mg PRN QHS PRN PO INSOMNIA Last administered on 10/27/20at 20:42; Start 10/23/20 at 20:30 Hydromorphone HCl (Dilaudid) 0.4 mg PRN Q2HR PRN IVP PAIN Last administered on 10/27/20at 18:14; Start 10/24/20 at 12:30 Acetaminophen/ Hydrocodone Bitart (Lortab 5/325) 1 tab PRN Q4HRS PRN PO MODERATE - SEVERE PAIN Last administered on 10/27/20at 20:41; Start 10/25/20 at 10:30 Active Scripts Active Reported Amlodipine Besylate 5 Mg Tablet 5 Mg PO DAILYWSUP Ambien (Zolpidem Tartrate) 10 Mg Tablet 10 Mg PO HS PRN Alprazolam 0.5 Mg Tablet 1 Tab PO HS Lamotrigine 150 Mg Tablet 1 Tab PO DAILY Zoloft (Sertraline Hcl) 100 Mg Tablet 1 Tab PO DAILY Losartan Potassium 100 Mg Tablet 100 Mg PO DAILY Vitals/I & O Vital Sign - Last 24 Hours 10/26/20 10/27/20 10/27/20 10/27/20 23:06 00:04 00:34 03:08 Temp 98.1 98.1 98.1 98.1 Pulse 76 66 Resp 18 20 20 16 B/P (MAP) 154/84 (107) 151/82 (105) Pulse Ox 95 95 O2 Delivery Room Air Room Air Room Air Room Air 10/27/20 10/27/20 10/27/20 10/27/20 03:09 03:10 03:40 04:09 Resp 20 20 20 20 O2 Delivery Room Air Room Air Room Air Room Air 10/27/20 10/27/20 10/27/20 10/27/20 06:35 07:25 08:00 09:00 Temp 98.2 98.2 Pulse 72 Resp 20 16 B/P (MAP) 129/85 (100) Pulse Ox 100 O2 Delivery Room Air Room Air Room Air Room Air 10/27/20 10/27/20 10/27/20 10/27/20 09:00 09:38 10:10 10:57 Temp 98.2 98.2 Pulse 72 72 Resp 16 B/P (MAP) 129/85 (100) 129/85 Pulse Ox 100 O2 Delivery Room Air Room Air Room Air 10/27/20 10/27/20 10/27/20 10/27/20 11:00 11:57 13:35 14:17 Temp 98.3 98.3 Pulse 66 Resp 16 B/P (MAP) 148/83 (104) Pulse Ox 97 O2 Delivery Room Air Room Air Room Air Room Air 10/27/20 10/27/20 10/27/20 10/27/20 14:51 15:00 16:15 16:23 Temp 98.8 98.8 Pulse 72 72 Resp 16 B/P (MAP) 138/80 (99) 138/80 Pulse Ox 97 O2 Delivery Room Air Room Air Room Air 10/27/20 10/27/20 10/27/20 10/27/20 17:41 18:14 18:54 19:00 Temp 98.9 98.9 Pulse 70 Resp 20 B/P (MAP) 142/77 (98) Pulse Ox 98 O2 Delivery Room Air Room Air Room Air Room Air 10/27/20 20:41 Resp 17 O2 Delivery Room Air Intake and Output 10/26/20 10/26/20 10/27/20 14:00 22:00 06:00 Intake Total 1000 ml 480 ml Output Total 0 ml Balance 1000 ml 480 ml Justicifation of Admission Dx: Justifications for Admission: Justification of Admission Dx: Yes DEYANIRA SMALLS MD Oct 27, 2020 21:59
[2020-10-27 23:09] VITALS: BP 139/80
[2020-10-28] MEDS: HYDROmorphone 2 MG/ML VIAL IVP PRN ×6 (00:54→22:41)
[2020-10-28] MEDS: IV NORMAL SALINE 1000ML BAG 1,000 ML IV SCH ×3 (02:28→22:41)
[2020-10-28] MEDS: HYDROcodone/APAP 5/325MG 1 TAB TABLET PO PRN ×3 (02:29→20:49)
[2020-10-28 03:00] VITALS: BP 128/86
[2020-10-28 07:00] VITALS: BP 136/79
[2020-10-28] MEDS: LOSARTAN POTASSIUM 50 MG TABLET. PO SCH (09:10)
[2020-10-28] MEDS: PANTOPRAZOLE 40 MG TABLET.DR. PO SCH ×2 (09:11→19:33)
[2020-10-28] MEDS: FERROUS SULFATE 325 MG TABLET. PO SCH ×2 (09:11→20:49)
[2020-10-28] MEDS: THIAMINE 100 MG TABLET. PO SCH (09:11)
[2020-10-28] MEDS: SUCRALFATE 1 GM TABLET. PO SCH ×4 (09:11→20:49)
[2020-10-28] MEDS: SERTRALINE 50 MG TABLET. PO SCH (09:11)
[2020-10-28] MEDS: lamoTRIgine 100 MG TABLET. PO SCH (09:12)
[2020-10-28] MEDS: CYANOCOBALAMIN (VITAMIN B-12) 1,000 MCG/ML VIAL. SQ SCH (09:16)
[2020-10-28] MEDS: ONDANSETRON PF 4 MG/2 ML VIAL. IVP PRN ×2 (09:38→19:33)
[2020-10-28 11:00] VITALS: BP 126/74
--- NOTE | 2020-10-28 12:27 | PDOC ---
Date of Service: DATE: 10/28/20 TIME: 12:23 Subjective: Subjective: Tolerate mashed potatoes last night. Tried eggs and sausage for breakfast and didn't go so well. Feels like it's not going through, has pain for awhile after eating. Ordered fish, mashed potatoes, soup, and jello for lunch. No vomiting. Would like to go home. Not getting smaller/more frequent meals here - ordered yesterday and d/w nurse. Objective: Objective: Still getting Dilaudid w/ Lortab. 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 If dose okay w/ lunch, could consider DC - she thinks she might do better w/ diet (small frequent meals) at home. Continue PPI, Carafate, iron, B12 indefinitely - will need Rx on DC. Justicifation of Admission Dx: Justifications for Admission: Justification of Admission Dx: Yes KEZIA HUTCHINSON Oct 28, 2020 12:27
[2020-10-28 15:00] VITALS: BP 143/82
[2020-10-28 19:00] VITALS: BP 178/87
[2020-10-28] MEDS: ALPRAZolam 0.5 MG TABLET PO SCH (20:49)
[2020-10-28] MEDS: ZOLPIDEM 5 MG TABLET. PO SCH (20:49)
[2020-10-28] MEDS: ZOLPIDEM 5 MG TABLET. PO PRN (20:49)
[2020-10-28 23:00] VITALS: BP 165/79
[2020-10-29] MEDS: HYDROcodone/APAP 5/325MG 1 TAB TABLET PO PRN ×4 (01:19→16:06)
[2020-10-29 03:00] VITALS: BP 140/86
[2020-10-29] MEDS: HYDROmorphone 2 MG/ML VIAL IVP PRN ×3 (05:29→13:51)
[2020-10-29 07:00] VITALS: BP 135/69
[2020-10-29] MEDS: PANTOPRAZOLE 40 MG TABLET.DR. PO SCH (07:28)
[2020-10-29] MEDS: SUCRALFATE 1 GM TABLET. PO SCH ×2 (07:28→11:27)
--- NOTE | 2020-10-29 07:48 | NUR ---
telemetry dc'd per protocol
[2020-10-29] MEDS: IV NORMAL SALINE 1000ML BAG 1,000 ML IV SCH (09:09)
[2020-10-29] MEDS: CYANOCOBALAMIN (VITAMIN B-12) 1,000 MCG/ML VIAL. SQ SCH (09:11)
[2020-10-29] MEDS: THIAMINE 100 MG TABLET. PO SCH (09:12)
[2020-10-29] MEDS: FERROUS SULFATE 325 MG TABLET. PO SCH (09:12)
[2020-10-29] MEDS: ONDANSETRON PF 4 MG/2 ML VIAL. IVP PRN (09:12)
[2020-10-29] MEDS: SERTRALINE 50 MG TABLET. PO SCH (09:12)
[2020-10-29] MEDS: lamoTRIgine 100 MG TABLET. PO SCH (09:13)
[2020-10-29] MEDS: LOSARTAN POTASSIUM 50 MG TABLET. PO SCH (09:13)
--- NOTE | 2020-10-29 10:54 | PDOC ---
Date of Service: DATE: 10/29/20 TIME: 10:51 Subjective: Subjective: Struggling some w/ diet, says talked w/ cross cut sawyer. 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 If tolerating Ensure, full liquids, etc., then could consider DC on PPI, Carafate, iron, and B12 w/ plans for EGD as outpt in ~2 months. Justicifation of Admission Dx: Justifications for Admission: Justification of Admission Dx: Yes KEZIA HUTCHINSON Oct 29, 2020 10:54
[2020-10-29 11:00] VITALS: BP 128/62
[2020-10-29 15:00] VITALS: BP 158/81
[2020-10-29] MEDS ORDERED: SUCR1TAB35 PO (15:05)
[2020-10-29] MEDS ORDERED: ONDA4TAB7 PO (15:05)
[2020-10-29] MEDS ORDERED: FERR325T72 PO (15:05)
[2020-10-29] MEDS ORDERED: HYDR-2761 PO (15:05)
[2020-10-29] MEDS ORDERED: PANT40TA77 PO (15:05)
[2020-10-29 16:12] LABS: METHYLMALONIC ACID 166 nmol/L (0-378)
--- NOTE | 2020-10-29 16:24 | PDOC3 ---
Discharge Summary Visit Information Date of Admission: Oct 22, 2020 Date of Discharge: Oct 29, 2020 Admitting Diagnosis Comment: hematemesis due to acute GI bleed upper versus lower Profound anemia status post one PRBC transfusion History of recurrent gastric ulcers Medical nonadherence Final Diagnosis GI bleed Hematemesis Gastric ulcer Anemia Medication nonadherance Hyperglycemia Low Cr Low BUN Thrombocytosis Oral intake intolerance with intractable nausea Brief Hospital Course Allergies Allergies Coded Allergies Type Severity Reaction Last Updated Verified ibuprofen Allergy Severe Swelling 10/22/20 Yes lisinopril Allergy Severe Swelling 10/22/20 Yes Vital Signs Vital Signs Date Time Temp Pulse Resp B/P (MAP) Pulse Ox O2 Delivery O2 Flow Rate FiO2 10/29/20 15:00 98.1 79 20 158/81 (106) 97 Room Air 98.1 10/28/20 15:38 2.0 Brief Hospital Course 50-year-old female with past medical history of weight loss J Carlos-en-Y done in 2004 and multiple episodes of GI bleed since then. She has not last EGD was done in 2018 which was normal. She also had a surgical procedure in 2013 for a nonhealing ulcer in which the gastrojejunal anastomosis was revised she comes in due to daily vomiting of undigested food after eating. She has a has some dysphagia and some diarrhea. Patient also reports dark blood hematemesis and bright red blood with stools. Patient has not been taking PPI for years mainly due to cost. She does take Mylanta and Carafate. Patient also does stop taking iron and B12 because she does not have health insurance. Denies any recent weight loss or NSAID use. At [facility]: Hgb 6.8, MCV 83, plt 501, BUN 12, Cr 0.6, +Hemoccult. Says was transfused 1 unit pRBCs. Labs pending this morning. She had an EGD with the following results Procedure EGD Indication: anemia, hematemesis Meds: per anesthesia Findings: E--Normal. GEJ at 35 cm. G--S/p J Carlos-en-Y with small pouch unremarkable. Gastroenterostomy mildly narrowed; able to pass with 'scope and dilated some with passage. J Carlos limb--Chronic clean-based ulcer ~1 cm just distal to stoma w/o bleeding or signs of recent bleeding. Rest of limb unremarkable. Ryan. well. IMP: Anastomotic ulcer, chronic, but w/o signs of recent or risk of future bleeding. S/p J Carlos-en-Y bypass. Mild stomal stenosis, dilated with 'scope passage. REC: BID PPI po. QID sucralfate po. Try liquids--advance cautiously if tolerated. Long-term needs chronic iron supplementation, po or IV. ABRAHAM VELIZ MD Oct 22, 2020 11:04 SIGNED BY: ABRAHAM VELIZ MD DATE: 10/22/20 1104 10/23/2020 No acute events overnight. Patient is not having any more hematemesis or hemoptysis. EGD completed which showed chronic healing ulcer near the anastomosis. No bloody stools. Pending diet full liquid today. Patient's chart, labs, images were reviewed and discussed with RN 10/24/2020 No acute events overnight. Patient started on full liquid diet and was tolerating until last night when she had abdominal pain. Abdominal pain is sustained but has not worsened since eating. She is passing flatus and had a bowel movement this morning. That was nonbloody. Patient's chart, labs, images were reviewed and discussed with RN 10/25/2020 No acute events overnight. Patient is tolerating clear liquid diet will attempt to advance as tolerated to full liquid diet. Adjusted pain medication regimen to add Braddock 5/325 mg every 4 hours. Patient still having abdominal pain with meals. Passing flatus. Patient's chart, labs, images were reviewed and discussed with RN 10/26/2020 Patient seen and examined in room today Patient states her nausea is going down but still complains of discomfort after she eats. Nurse assisting her to take her pain medications Complains of headache, diarrhea, weakness and feeling winded Discussed with RN = Patient still in a lot of pain but RN says she doesn't seem in distress and is on multiple analgesics Charts reviewed 10/27/2020 Patient still not able to eat due to nausea and emesis, no hematemesis reported hemodynamically stable all concerns addressed, discussed with RN 10/28/2020 She was still ahving troubel tolerating her diet despite decreasing quantitiy and spcing them out, she would like ot try some changes throoughout the dfay and hopefully get her symtpoms under control a little better 10/29/2020 Patient in good spirits to be going home. She will certainly try dietary recommendations from our agricultural consultant in order to keep her symptoms of day. No concerns were voiced during my visit reassurance has been provided Discharge Information Condition at Discharge: Improved Follow Up: Weeks Disposition/Orders: D/C to Home Scheduled Alprazolam (Alprazolam) 0.5 Mg Tablet, 1 TAB PO HS for anxiety, #30 (Reported) Entered as Reported by: PEREZ HUGHES on 10/22/20520 Last Action: Continued on 10/23/202016 by LIZZ TOLBERT Amlodipine Besylate (Amlodipine Besylate) 5 Mg Tablet, 5 MG PO DAILYWSUP for htn, (Reported) Entered as Reported by: PEREZ HUGHES on 10/22/20520 Last Action: Continued on 10/23/202016 by LIZZ TOLBERT Ferrous Sulfate (Feosol) 325 Mg Tablet, 325 MG PO BID for iron deficiency for 30 Days, #60 Prescribed by: DEYANIRA SMALLS MD on 10/29/20 1505 Lamotrigine (Lamotrigine) 150 Mg Tablet, 1 TAB PO DAILY for , #30 Ref 1 (Reported) Entered as Reported by: PEREZ HUGHES on 10/22/20520 Last Action: New Order on 10/22/20520 by PEREZ HUGHES Losartan Potassium (Losartan Potassium) 100 Mg Tablet, 100 MG PO DAILY for HYPERTENSION, (Reported) Entered as Reported by: PEREZ HUGHES on 10/22/20520 Last Action: New Order on 10/22/20520 by PEREZ HUGHES Ondansetron Hcl (Zofran) 4 Mg Tablet, 1 TAB PO Q8HRS for nausea, #30 Prescribed by: DEYANIRA SMALLS MD on 10/29/20 1505 Pantoprazole Sodium (Pantoprazole Sodium ) 40 Mg Tablet.dr, 40 MG PO BIDAC for dyspepsia for 30 Days, #60 Prescribed by: DEYANIRA SMALLS MD on 10/29/20 1505 Sertraline Hcl (Zoloft) 100 Mg Tablet, 1 TAB PO DAILY for , #30 Ref 5 (Reported) Entered as Reported by: PEREZ HUGHES on 10/22/20520 Last Action: New Order on 10/22/20520 by PEREZ HUGHES Sucralfate (Carafate) 1 Gm Tablet, 1 GM PO QIDACHS for GERD for 30 Days, #120 Prescribed by: DEYANIRA SMALLS MD on 10/29/20 1505 Scheduled PRN Hydrocodone Bit/Acetaminophen (Hydrocodone-Apap 5-325 ) 1 Tab Tablet, 1 TAB PO PRN Q4HRS PRN for MODERATE - SEVERE PAIN for 18 Days Prescribed by: DEYANIRA SMALLS MD on 10/29/20 1505 Zolpidem Tartrate (Ambien) 10 Mg Tablet, 10 MG PO HS PRN for INSOMNIA, Ref 0 (Reported) Entered as Reported by: PEREZ HUGHES on 10/22/20520 Last Action: New Order on 10/22/20520 by PEREZ HUGHES Justicifation of Admission Dx: Justifications for Admission: Justification of Admission Dx: Yes DEYANIRA SMALLS MD Oct 29, 2020 16:24
--- NOTE | 2020-10-29 17:30 | NUR ---
pt discharged home with family. meds and follow up reviewed. pt v/u. port de-accessed. pt stable upon dc.
== END 2020-10-29 15:00 | disposition home or self-care (01) | DRG 378 ==
LOC: 5 NORTH 04:46
PROVIDERS: ADMIT Internal Medicine; ATTEND Internal Medicine
PROC: 0DJ08ZZ Inspection of Upper Intestinal Tract, Via Natural or Artificial Opening Endoscopic (ICD-10-PCS; principal; 2020-10-22 11:00)
DX: K25.4 Chronic or unspecified gastric ulcer with hemorrhage (principal); E44.0 Moderate protein-calorie malnutrition; D64.9 Anemia, unspecified; I10 Essential (primary) hypertension; R13.10 Dysphagia, unspecified; Z96.643 Presence of artificial hip joint, bilateral; G89.29 Other chronic pain; R19.7 Diarrhea, unspecified; R73.9 Hyperglycemia, unspecified; D47.3 Essential (hemorrhagic) thrombocythemia; Z68.25 Body mass index [BMI] 25.0-25.9, adult; Z90.49 Acquired absence of other specified parts of digestive tract; Z91.14 Patient's other noncompliance with medication regimen; Z98.84 Bariatric surgery status; Z87.891 Personal history of nicotine dependence; Z88.8 Allergy status to other drugs, medicaments and biological substances; Z20.822 Contact with and (suspected) exposure to COVID-19
CPT/HCPCS: 36415; 43235; 80048; 80053; 82525; 82607; 82728; 83735; 83921; 84100; 84425; 84443; 85025; 85610; 85730; 87426; 90471; 90686; C9113; J1170; J2270; J2405; J2704; J3420; J3475; J7030; J7120; U0003; 97535-GO; G0378